=== PATIENT | female | born 1975 | race Caucasian/White ===

== ENCOUNTER → 2016-06-17 | Outpatient (CLI) | payer OTHER ==
--- NOTE | 2016-06-17 23:50 | MR ---
EXAMINATION TYPE: MR brain wo/w con DATE OF EXAM: 06/17/2016 9:57 PM COMPARISON: NONE HISTORY: MS follow-up, increased frequency in headaches and visual disturbances CONTRAST: Standard multiplanar, multisequence MRI departmental protocol utilizing 13 mL intravenous MultiHance gadolinium contrast. FINDINGS: Ventricles of normal size. There is no mass effect or midline shift. There is no sign of in tracranial hemorrhage. On the T2 and FLAIR images there are scattered foci of increased signal in the rodriguez-white matter junc tion of both cerebral hemispheres.. These measure up to 6 mm in size. The total number is approximate ly 10. The largest are in the right anterior parietal lobe. Lesions are present more in the right fro ntal lobe and bilateral parietal lobes and a single focus in the anterior right temporal lobe. The br ainstem appears normal. Corpus callosum has normal signal pattern. Optic nerves have normal signal pa ttern. Sella turcica appears normal. IMPRESSION: Nonspecific multiple white matter foci predominantly at the rodriguez-white matter junction in both cerebr al hemispheres as above appear not significantly different than the last exam of 12/19/2015. The lesio ns are not seen in the corpus callosum, this is not typical for demyelinating disease. MS is still in the differential diagnosis.
== END | disposition home or self-care (01) ==
LOC: RADMRIMAIN 21:07
PROVIDERS: ATTEND Nurse Practitioner Acute Care
DX: R90.82 White matter disease, unspecified (principal); G35 Multiple sclerosis
CPT/HCPCS: 70553; A9577

== ENCOUNTER → 2016-12-31 | Outpatient (CLI) | payer OTHER ==
[2016-12-31 19:44] LABS: Varicella zoster IgG Interp POSITIVE (NEGATIVE); Varicella zoster IgG Result 4.9 AI
== END | disposition home or self-care (01) ==
LOC: LABWHC1 11:52
PROVIDERS: ATTEND Nurse Practitioner Acute Care
DX: G35 Multiple sclerosis (principal)
CPT/HCPCS: 36415; 86147; 86787; 93005

== ENCOUNTER 2017-07-02 21:01 | Emergency (ER) | payer OTHER ==
[2017-07-02] MEDS ORDERED: SODIUM CHLORIDE 0.9% 500 ML IV STA (21:12)
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
[2017-07-02 21:43] LABS: Basophils # (A) 0.1 k/uL (0-0.2); Basophils % (A) 0 %; Eosinophils # (A) 0.1 k/uL (0-0.7); Eosinophils % (A) 1 %; HCT 46.1 % (34.0-46.0); HGB 14.5 gm/dL (11.4-16.0); Lymphocytes # (A) 3.6 k/uL (1.0-4.8); Lymphocytes % (A) 26 %; MCH 32.3 pg (25.0-35.0); MCHC 31.4 g/dL (31.0-37.0); MCV 102.7 fL (80.0-100.0); Macrocytosis Slight; Mean Platelet Volume 7.3; Monocytes # (A) 0.5 k/uL (0-1.0); Monocytes % (A) 3 %; Neutrophils # (A) 9.7 k/uL (1.3-7.7); Neutrophils % (A) 69 %; Platelet Count 334 k/uL (150-450); RBC 4.49 m/uL (3.80-5.40); RDW 13.1 % (11.5-15.5)
[2017-07-02 21:54] LABS: ALT 23 U/L (9-52); AST 36 U/L (14-36); Albumin 4.5 g/dL (3.5-5.0); Alkaline Phosphatase 77 U/L (38-126); Anion Gap 16 mmol/L; Blood Urea Nitrogen 5 mg/dL (7-17); Calcium 9.8 mg/dL (8.4-10.2); Carbon Dioxide 20 mmol/L (22-30); Chloride 109 mmol/L (98-107); Glucose 89 mg/dL (74-99); Potassium 4.1 mmol/L (3.5-5.1); Sodium 145 mmol/L (137-145); Total Bilirubin 0.5 mg/dL (0.2-1.3)
[2017-07-02 21:59] LABS: Alcohol 173 mg/dL
[2017-07-02 22:03] LABS: Appearance,Urine Clear (Clear); Bacteria,Urine Rare /hpf; Bilirubin,Urine Negative (Negative); Blood,Urine Large (Negative); Color,Urine Colorless; Glucose,Urine (UA) Negative (Negative); Ketones,Urine Negative (Negative); Leukocyte Esterase,Urine Negative (Negative); Mucus,Urine Rare /hpf; Nitrite,Urine Negative (Negative); Protein,Urine Negative (Negative); RBC,Urine <1 /hpf (0-5); Specific Gravity,Urine 1.001 (1.001-1.035); Urobilinogen,Urine <2.0 mg/dL (<2.0); WBC,Urine <1 /hpf (0-5)
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
[2017-07-02 22:38] VITALS: RESP 18
[2017-07-02 23:38] VITALS: BP 130/72; PULSE 101; TEMP 98.2
== END 2017-07-02 23:30 | disposition home or self-care (01) ==
LOC: EC 21:01
DX: S09.90XA Unspecified injury of head, initial encounter (principal); J44.9 Chronic obstructive pulmonary disease, unspecified; F17.200 Nicotine dependence, unspecified, uncomplicated; Z79.51 Long term (current) use of inhaled steroids; Z79.899 Other long term (current) drug therapy; Z88.0 Allergy status to penicillin; Z88.6 Allergy status to analgesic agent; V89.2XXA Person injured in unspecified motor-vehicle accident, traffic, initial encounter; Y92.410 Unspecified street and highway as the place of occurrence of the external cause
CPT/HCPCS: 36415; 70450; 72125; 80053; 80320; 81001; 81025; 83605; 85025; 96360; 99284

== ENCOUNTER → 2017-10-10 | Outpatient (CLI) | payer OTHER ==
--- NOTE | 2017-10-10 23:30 | MR ---
EXAMINATION TYPE: MR tspine/lspine wo con DATE OF EXAM: 10/10/2017 COMPARISON: NONE HISTORY: Back pain TECHNIQUE: Multiplanar, multisequence imaging of the lumbar spine is performed without IV contrast. M ultiplanar multi echo imaging of the thoracic spine was performed with no contrast. FINDINGS: The thoracic vertebra have fairly normal spacing and alignment. There is no compression fracture. The re is no thoracic paraspinal mass. There is a rounded focus of high signal in the T9 vertebral body t hat measures 1 cm and is probably hemangioma. There is slight prominence of the thoracic spinal cord spinal canal. This measures 2 mm. I see no mass of the thoracic spinal cord. I see no focal bone dest ruction. The lumbar vertebra have normal alignment. There is mild narrowing and decreased signal in the L4-5 d isc. There is no lumbar paraspinal mass. Lumbar nerve roots appear normal. The lumbar neural foramina are fairly well-maintained. I see no focal bone destruction. Posterior elements are intact. There is no spinal stenosis. There is a small posterior disc bulge at L4-5. CONCLUSION: There is a mild syrinx of the thoracic spinal cord. This is of uncertain significance. I see no mass of the spinal cord. There are minor degenerative changes in the thoracic spine. No compression fractu re. Mild degenerative disc change at L4-5. No spinal stenosis. Small posterior disc bulge at L4-5 without spinal stenosis. No fracture.
--- NOTE | 2017-10-11 01:33 | MR ---
EXAMINATION TYPE: MR brain wo/w con DATE OF EXAM: 10/10/2017 COMPARISON: 06/17/2016 HISTORY: MS Follow up, Gadavist 7.5 TECHNIQUE: Multiplanar, multisequence images of the brain and brainstem is performed without and with IV contras t, utilizing 5.5 mL intravenous Gadavist . FINDINGS: Ventricles and sulci are within normal limits. There is no mass effect nor midline shift. T here is no sign of intracranial hemorrhage. There is no evidence of a cortical infarct. There is mild mucosal thickening in the ethmoid and right maxillary sinuses. On the FLAIR images there are scattered foci of increased signal at the rodriguez-white matter junction of both cerebral hemispheres. Total number is approximately 10. These are mostly less than 5 mm. The la rgest is 7 mm in the right posterior frontal lobe. There are small areas of increased signal in the w corbin matter adjacent to the lateral ventricles. The brainstem appears normal. Cerebellum appears norm al. Optic chiasm and pituitary gland appear normal. The contrast images show no pathologic enhancemen t. IMPRESSION: Scattered white matter is foci are fairly stable compared to old MR scan and consistent w ith demyelinating disease in this relatively young patient. Minimal sinusitis.
== END | disposition home or self-care (01) ==
LOC: RADMRIMAIN 14:41
PROVIDERS: ATTEND Nurse Practitioner Acute Care
DX: M51.26 Other intervertebral disc displacement, lumbar region (principal); M47.816 Spondylosis without myelopathy or radiculopathy, lumbar region; G95.0 Syringomyelia and syringobulbia; G35 Multiple sclerosis; Z88.1 Allergy status to other antibiotic agents; Z88.8 Allergy status to other drugs, medicaments and biological substances
CPT/HCPCS: 70553; 72146; 72148; A9581

== ENCOUNTER 2017-10-15 01:18 | Emergency (ER) | payer OTHER ==
[2017-10-15 01:36] VITALS: RESP 20
[2017-10-15] MEDS ORDERED: MORPHINE SULFATE 4 MG/ML SYRINGE IM STA (01:57)
[2017-10-15] MEDS ORDERED: RX INFO: IV CONTRAST WAS GIVEN 1 EACH MISC MISCELLANE PRN (01:57)
[2017-10-15] MEDS ORDERED: MORPHINE SULFATE 4 MG/ML SYRINGE IVP STA (01:58)
--- NOTE | 2017-10-15 02:41 | CT ---
EXAMINATION TYPE: CT abdomen pelvis w con DATE OF EXAM: 10/15/2017 COMPARISON: NONE HISTORY: Fall, back pain, left side abd pain, Left Hip pain CT DLP: 511.30 mGycm Automated exposure control for dose reduction was used. TECHNIQUE: Helical acquisition of images was performed from the lung bases through the pelvis. CONTRAST: Performed without Oral Contrast and with IV Contrast, patient injected with 100 mL of Isovue 300. FINDINGS: Lung bases are clear. There is no pleural effusion. There is no pericardial effusion. Liver spleen pancreas gallbladder appear normal. Bile ducts are not dilated. There is no adrenal mass. Kidneys show satisfactory contrast opacification. There is no hydronephrosi s. There is no retroperitoneal adenopathy. Bladder distends smoothly. There is no evidence of pelvic mass. Appendix appears normal. I see no intestinal wall thickening. There are no dilated loops. There are a few diverticula in the descending colon. There is no evidence of diverticulitis. Bony structur es are intact. There is no sign of free air. There is narrowing of L4-5 disc space. There is no lumba r paraspinal mass. Bony pelvis appears intact. There is no evidence of a fracture. IMPRESSION: NO EVIDENCE OF TRAUMATIC INJURY. NEGATIVE CT SCAN OF THE ABDOMEN AND PELVIS. MILD COLONIC DIVERTICULO SIS.
[2017-10-15 02:45] LABS: Appearance,Urine Clear (Clear); Bilirubin,Urine Negative (Negative); Blood,Urine Negative (Negative); Color,Urine Light Yellow; Glucose,Urine (UA) Negative (Negative); Ketones,Urine Negative (Negative); Leukocyte Esterase,Urine Negative (Negative); Nitrite,Urine Negative (Negative); Protein,Urine Negative (Negative); Specific Gravity,Urine 1.013 (1.001-1.035); Urobilinogen,Urine <2.0 mg/dL (<2.0)
[2017-10-15] MEDS ORDERED: KETOROLAC 30 MG/ML 1 ML VIAL IVP STA (02:56)
--- NOTE | 2017-10-15 02:57 | ED ---
Back Pain HPI - General Chief Complaint: Back Pain/Injury Stated Complaint: FALL Time Seen by Provider: 10/15/17 01:29 Source: patient, family - History of Present Illness Initial Comments: 42-year-old female patient presents to the emergency department today for evaluation of left flank pain. Patient states that she was in the kitchen, lost her balance and fell striking her left flank on the counter. States injury occurred approximately one hour prior to arrival. She denies hitting her head or losing consciousness during the fall. She denies any hematuria. Denies any shortness of breath or chest pain. She denies any lower extremity numbness or tingling. Denies any saddle anesthesia. Denies any loss of bowel or bladder control. Patient denies any headache, chest pain, shortness of breath , dizziness, weakness, abdominal pain, nausea, vomiting, or difficulties with bowel movements or urination. - Related Data Home Medications Medication Instructions Recorded Confirmed Propranolol [Inderal] 20 mg PO BID 10/15/17 10/15/17 Allergies Allergy/AdvReac Type Severity Reaction Status Date / Time amoxicillin trihydrate Allergy Rash/Hives Verified 10/15/17 01:36 [From Augmentin] naproxen sodium [From Aleve] Allergy Rash/Hives Verified 10/15/17 01:36 potassium clavulanate Allergy Rash/Hives Verified 10/15/17 01:36 [From Augmentin] Review of Systems ROS Statement: Those systems with pertinent positive or pertinent negative responses have been documented in the HPI. ROS Other: All systems not noted in ROS Statement are negative. Past Medical History Additional Past Medical History / Comment(s): CIPD, MS History of Any Multi-Drug Resistant Organisms: None Reported Past Surgical History: Tonsillectomy Additional Past Surgical History / Comment(s): sinus Past Psychological History: No Psychological Hx Reported Smoking Status: Current every day smoker Past Alcohol Use History: Occasional Past Drug Use History: None Reported General Exam General appearance: alert, in no apparent distress, other (This is a well- developed, well-nourished adult female patient in no acute distress. Vital signs upon presentation are temperature 97.5F, pulse 91, respirations 20, blood pressure 147/82, pulse ox 98% on room air.) Head exam: Present: atraumatic, normocephalic, normal inspection Eye exam: Present: normal appearance, PERRL, EOMI. Absent: scleral icterus, conjunctival injection, periorbital swelling ENT exam: Present: normal exam, normal oropharynx, mucous membranes moist Neck exam: Present: normal inspection, full ROM, other (Nontender, no step-off, no deformity to firm midline palpation of the posterior cervical spine. Full range of motion without pain or limitation.). Absent: tenderness, meningismus, lymphadenopathy Respiratory exam: Present: normal lung sounds bilaterally. Absent: respiratory distress, wheezes, rales, rhonchi, stridor Cardiovascular Exam: Present: regular rate, normal rhythm, normal heart sounds. Absent: systolic murmur, diastolic murmur, rubs, gallop, clicks GI/Abdominal exam: Present: soft, normal bowel sounds, other (Left flank tenderness; no flank ecchymosis). Absent: distended, tenderness, guarding, rebound, rigid Extremities exam: Present: normal inspection, full ROM, normal capillary refill. Absent: tenderness, pedal edema, joint swelling, calf tenderness Back exam: Present: normal inspection, other (Nontender, no step-off, no deformity to firm midline palpation of the thoracic and lumbar vertebrae. Full range of motion without pain or limitation.). Absent: vertebral tenderness Neurological exam: Present: alert, oriented X3, CN II-XII intact Psychiatric exam: Present: normal affect, normal mood Skin exam: Present: warm, dry, intact, normal color. Absent: rash Course Vital Signs 10/15/17 10/15/17 01:32 03:02 Temperature 97.5 F L 97.7 F Pulse Rate 91 90 Respiratory 20 20 Rate Blood Pressure 147/82 144/64 O2 Sat by Pulse 97 Oximetry Medical Decision Making - Medical Decision Making 42-year-old female patient presents to the emergency department today for complaints of left flank pain and tenderness after a fall at home. Physical examination did reveal tenderness to the left flank. No lower rib or hip tenderness. There is no midline vertebral tenderness. Urinalysis showed no evidence of hematuria. Did perform CT of the abdomen and pelvis with contrast which showed no acute abnormalities. Patient was given a dose of morphine and Toradol here in the department. Did educate patient regarding use of ice and heat to the area. She is instructed to follow-up with her primary care physician for recheck in 1-2 days. Return parameters discussed in detail. She verbalizes understanding and agrees with this plan. - Lab Data Lab Results 10/15/17 Range/Units 02:33 Urine Color Light Yellow Urine Appearance Clear (Clear) Urine pH 6.0 (5.0-8.0) Ur Specific [place] 1.013 (1.001-1.035) Urine Protein Negative (Negative) Urine Glucose (UA) Negative (Negative) Urine Ketones Negative (Negative) Urine Blood Negative (Negative) Urine Nitrite Negative (Negative) Urine Bilirubin Negative (Negative) Urine Urobilinogen <2.0 (<2.0) mg/dL Ur Leukocyte Esterase Negative (Negative) - EKG Data -: EKG Interpreted by Me EKG Comments: EKG obtained at 01 43 shows normal sinus rhythm with a ventricular rate of 82, parent interval 170, QRS duration 84, QT 356, QTC 4:15. No evidence of ST elevation or depression. - Radiology Data Radiology results: report reviewed, image reviewed CT of the abdomen and pelvis with contrast was obtained. Report was reviewed in its entirety. Impression by Dr. Dennis shows no evidence for traumatic injury. Negative computed tomography scan of the abdomen and pelvis. Mild colonic diverticulosis per Disposition Clinical Impression: Left flank pain Disposition: HOME SELF-CARE Condition: Good Instructions: Acute Low Back Pain (ED), Flank Pain (ED) Additional Instructions: Apply ice to the area for the next 24 hours and switch to warm moist heat. Continue taking home pain medications as directed. Follow-up with your primary care physician for recheck in 1-2 days. Return here immediately for any new, worsening, or concerning symptoms. Is patient prescribed a controlled substance at d/c from ED?: No Referrals: Ilda Jimenez DO [Primary Care Provider] - 1-2 days Time of Disposition: 02:57
[2017-10-15 03:15] VITALS: BP 144/64; PULSE 90; TEMP 97.7
== END 2017-10-15 03:15 | disposition home or self-care (01) ==
LOC: EC 01:18
DX: R10.9 Unspecified abdominal pain (principal); K57.30 Diverticulosis of large intestine without perforation or abscess without bleeding; F17.200 Nicotine dependence, unspecified, uncomplicated; Z79.899 Other long term (current) drug therapy; Z88.0 Allergy status to penicillin; Y92.000 Kitchen of unspecified non-institutional (private) residence as the place of occurrence of the external cause; Z88.6 Allergy status to analgesic agent; W01.198A Fall on same level from slipping, tripping and stumbling with subsequent striking against other object, initial encounter; Z53.8 Procedure and treatment not carried out for other reasons
CPT/HCPCS: 99284; 93005; 81003; 74177; J2270; J1885; Q9967

== ENCOUNTER → 2017-12-23 | Outpatient (CLI) | payer OTHER ==
[2017-12-23 13:25] LABS: Basophils % (A) 1 %; Eosinophils # (A) 0.1 k/uL (0-0.7); Eosinophils % (A) 1 %; HCT 46.8 % (34.0-46.0); HGB 15.1 gm/dL (11.4-16.0); Lymphocytes # (A) 1.9 k/uL (1.0-4.8); Lymphocytes % (A) 38 %; MCH 32.1 pg (25.0-35.0); MCHC 32.2 g/dL (31.0-37.0); MCV 99.7 fL (80.0-100.0); Mean Platelet Volume 7.1; Monocytes # (A) 0.3 k/uL (0-1.0); Monocytes % (A) 6 %; Neutrophils # (A) 2.7 k/uL (1.3-7.7); Neutrophils % (A) 54 %; Platelet Count 276 k/uL (150-450); RBC 4.69 m/uL (3.80-5.40); RDW 12.8 % (11.5-15.5)
[2017-12-23 13:49] LABS: ALT 31 U/L (9-52); AST 31 U/L (14-36); Albumin 4.4 g/dL (3.5-5.0); Alkaline Phosphatase 87 U/L (38-126); Anion Gap 7 mmol/L; Blood Urea Nitrogen 11 mg/dL (7-17); Calcium 9.5 mg/dL (8.4-10.2); Carbon Dioxide 25 mmol/L (22-30); Chloride 103 mmol/L (98-107); Glucose 130 mg/dL (74-99); Potassium 4.5 mmol/L (3.5-5.1); Sodium 135 mmol/L (137-145); Total Bilirubin 0.4 mg/dL (0.2-1.3); Total Protein 8.2 g/dL (6.3-8.2)
== END | disposition home or self-care (01) ==
LOC: LABWHC1 12:32
PROVIDERS: ATTEND Nurse Practitioner Acute Care
DX: G35 Multiple sclerosis (principal); E55.9 Vitamin D deficiency, unspecified
CPT/HCPCS: 36415; 80053; 82306; 85025